=== PATIENT | male | born 1960 | race Caucasian/White ===

== ENCOUNTER 2020-03-31 13:33 | Outpatient (REF) | payer OTHER, SELFPAY ==
[2020-03-31 18:17] LABS: Alanine Aminotransferase 43 U/L (0-40); Albumin Level 4.3 g/dL (3.5-5.0); Alkaline Phosphatase 50 U/L (39-117); Anion Gap 11 (12-20); Aspartate Amino Transferase 35 U/L (5-37); Bilirubin Total 0.6 mg/dL (0.0-1.0); Blood Urea Nitrogen 26 mg/dL (9-16); Calcium 9.1 mg/dL (8.4-10.2); Carbon Dioxide 25 mmol/L (22-29); Chloride 104 mmol/L (96-108); Cholesterol 257 mg/dL; Estimated Glomerular Filt Rate > 60; Glucose Fasting 97 mg/dL (60-99); HDL Cholesterol 40 mg/dL; LDL Cholesterol Calculated 191 mg/dl; Potassium 4.2 mmol/l (3.3-5.1); Sodium 136 mmol/L (135-145); Triglycerides 131 mg/dL
[2020-03-31 18:29] LABS: Prostate Specific Antigen 3.22 ng/mL (<0.05-4.0); Vitamin D 25-OH Total 22.7 ng/mL (>30)
== END 2020-03-31 13:34 | disposition home or self-care (01) ==
LOC: HO.MANLDS 13:33
PROVIDERS: PCP Internal Medicine; Visit Provider Internal Medicine
DX: E78.5 Hyperlipidemia, unspecified (principal); E55.9 Vitamin D deficiency, unspecified; Z12.5 Encounter for screening for malignant neoplasm of prostate
CPT/HCPCS: 80053; 80061; 82306; 84153

== ENCOUNTER 2021-12-26 12:15 | Outpatient (REF) | payer OTHER, SELFPAY ==
[2021-12-26 17:48] LABS: MANUAL DIFF FLAG NO
[2021-12-26 17:53] LABS: Basophils Percent Auto 0.7 % (0-2); Eosinophils Absolute Auto 0.1 X10*3/uL (0.0-0.4); Eosinophils Percent Auto 1.4 % (0-4); Hematocrit 43.3 % (42.0-52.0); Imm Gran Abs Auto 0.01 X10*3/uL (0.00-0.03); Imm Gran Pct Auto 0.2 % (0.0-0.4); Lymphocytes Absolute Auto 0.9 X10*3/uL (1.2-4.9); Lymphocytes Percent Auto 16.7 % (20-40); Mean Corpuscular HGB Conc 34.6 g/dl (31.0-36.0); Mean Corpuscular Hemoglobin 29.8 pg (27.0-33.0); Mean Corpuscular Volume 85.9 fL (80.0-98.0); Mean Platelet Volume 12.3 fL (9.4-12.4); Monocytes Absolute Auto 0.4 X10*3/uL (0.1-1.2); Monocytes Percent Auto 7.7 % (2-11); Neutrophils Absolute Auto 4.1 x10*3/uL (2.0-8.3); Neutrophils Percent Auto 73.3 % (45-73); Platelet Count 198 X10*3/uL (160-400); Red Blood Count 5.04 X10*6/uL (4.60-5.80); Red Cell Distribution Width 12.1 % (11.0-16.0); White Blood Count 5.6 X10*3/uL (4.8-10.8)
[2021-12-26 17:58] LABS: INTERNATIONAL NORM RATIO 0.9 (0.9-1.1); Prothrombin Time 10.3 SEC (10.0-13.1)
[2021-12-26 18:22] LABS: Alanine Aminotransferase 31 U/L (0-40); Albumin Level 4.3 g/dL (3.5-5.0); Alkaline Phosphatase 56 U/L (39-117); Anion Gap 10 (12-20); Aspartate Amino Transferase 26 U/L (5-37); Bilirubin Total 0.4 mg/dL (0.0-1.0); Blood Urea Nitrogen 22 mg/dL (9-16); C Reactive Protein 0.16 mg/dL (< or = 0.50); Calcium 9.3 mg/dL (8.4-10.2); Carbon Dioxide 25 mmol/L (22-29); Chloride 110 mmol/L (96-108); Estimated Glomerular Filt Rate > 60; Glucose Random 105 mg/dL (60-115); Iron 95 mcg/dL (45-160); Percent Iron Saturation 28 % (15-50); Potassium 4.3 mmol/L (3.3-5.1); Sodium 141 mmol/L (135-145); Total Iron Binding Capacity 342 mcg/dL (228-428); Total Protein 7.1 g/dL (6.5-8.0); Unsaturated Iron Binding 247 ug/dL
[2021-12-26 18:32] LABS: Erythrocyte Sedimentation Rate 5 MM/HR (0-15)
[2021-12-26 18:43] LABS: Ferritin 139 ng/mL (20-250); Thyroid Stimulating Hormone 2.04 uIU/mL (0.32-4.0); Vitamin D 25-OH Total 35.1 ng/mL (>30)
[2021-12-26 18:52] LABS: Folate 16.3 ng/mL (> or = 4.0); Vitamin B12 380 pg/mL (200-900)
[2021-12-27 07:18] LABS: Estimated Average Glucose 117 mg/dL; Hemoglobin A1c % 5.7 %
[2021-12-27 09:32] LABS: Lyme Abs Screen <0.90 index
== END 2021-12-26 12:16 | disposition home or self-care (01) ==
LOC: HO.MANLDS 12:15
PROVIDERS: Visit Provider Physician Assistant
DX: R04.0 Epistaxis (principal); E55.9 Vitamin D deficiency, unspecified; R42 Dizziness and giddiness; R26.9 Unspecified abnormalities of gait and mobility; T14.8XXA Other injury of unspecified body region, initial encounter; W57.XXXA Bitten or stung by nonvenomous insect and other nonvenomous arthropods, initial encounter
CPT/HCPCS: 36415; 80053; 82306; 82607; 82728; 82746; 83036; 83540; 84443; 85025; 85610; 85652; 86140; 86617; 86618

== ENCOUNTER 2021-12-30 09:55 | Outpatient (REF) | payer OTHER, SELFPAY ==
[2021-12-30 11:26] LABS: INTERNATIONAL NORM RATIO 0.9 (0.9-1.1); Prothrombin Time 10.4 SEC (10.0-13.1)
[2021-12-30 11:28] LABS: Partial Thromboplastin Time 36.5 SEC (26.0-36.4)
== END 2021-12-30 09:56 | disposition home or self-care (01) ==
LOC: HO.MANLDS 09:55
PROVIDERS: Visit Provider Physician Assistant
DX: R04.0 Epistaxis (principal)
CPT/HCPCS: 36415; 85610; 85730

== ENCOUNTER 2023-01-03 10:23 | Outpatient (REF) | payer OTHER, SELFPAY ==
[2023-01-03 13:14] LABS: MANUAL DIFF FLAG NO
[2023-01-03 13:31] LABS: Basophils Absolute Auto 0.1 X10*3/uL (0.0-0.2); Eosinophils Absolute Auto 0.1 X10*3/uL (0.0-0.4); Eosinophils Percent Auto 1.5 % (0-4); Hematocrit 43.9 % (42.0-52.0); Imm Gran Abs Auto 0.01 X10*3/uL (0.00-0.03); Imm Gran Pct Auto 0.2 % (0.0-0.4); Lymphocytes Absolute Auto 0.9 X10*3/uL (1.2-4.9); Lymphocytes Percent Auto 17.6 % (20-40); Mean Corpuscular HGB Conc 34.2 g/dl (31.0-36.0); Mean Corpuscular Hemoglobin 29.8 pg (27.0-33.0); Mean Corpuscular Volume 87.1 fL (80.0-98.0); Monocytes Absolute Auto 0.5 X10*3/uL (0.1-1.2); Monocytes Percent Auto 9.2 % (2-11); Neutrophils Absolute Auto 3.7 x10*3/uL (2.0-8.3); Neutrophils Percent Auto 70.5 % (45-73); Platelet Count 201 X10*3/uL (160-400); Red Blood Count 5.04 X10*6/uL (4.60-5.80); White Blood Count 5.2 X10*3/uL (4.8-10.8)
[2023-01-03 13:38] LABS: Estimated Average Glucose 117 mg/dL; Hemoglobin A1c % 5.7 %
[2023-01-03 13:58] LABS: Alanine Aminotransferase 25 U/L (0-40); Albumin Level 4.2 g/dL (3.5-5.0); Alkaline Phosphatase 50 U/L (39-117); Anion Gap 13 (12-20); Aspartate Amino Transferase 23 U/L (5-37); Bilirubin Total 0.5 mg/dL (0.0-1.0); Blood Urea Nitrogen 23 mg/dL (9-16); Calcium 9.6 mg/dL (8.4-10.2); Carbon Dioxide 25 mmol/L (22-29); Chloride 109 mmol/L (96-108); Cholesterol 250 mg/dL; Estimated Glomerular Filt Rate > 60; Glucose Random 103 mg/dL (60-115); HDL Cholesterol 38 mg/dL; LDL Cholesterol Calculated 186 mg/dl; Potassium 4.5 mmol/L (3.3-5.1); Sodium 142 mmol/L (135-145); Total Protein 7.1 g/dL (6.5-8.0); Triglycerides 131 mg/dL
[2023-01-03 14:28] LABS: Prostate Specific Antigen 5.38 ng/mL (<0.05-4.0)
== END 2023-01-03 10:24 | disposition home or self-care (01) ==
LOC: HO.MANLDS 10:23
PROVIDERS: Visit Provider Internal Medicine
DX: Z12.5 Encounter for screening for malignant neoplasm of prostate (principal); E78.2 Mixed hyperlipidemia; R73.01 Impaired fasting glucose; N40.0 Benign prostatic hyperplasia without lower urinary tract symptoms
CPT/HCPCS: 36415; 80053; 80061; 83036; 84153; 85025

== ENCOUNTER 2024-11-14 11:28 | Outpatient (REF) | payer OTHER, SELFPAY ==
--- OUTSIDE RECORDS SUMMARY | 2024-11-14 12:25 | XMS_ITS | Data Portability ---
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 MUST MEET 2 OUT OF 3 ELEMENTS: PROBLEMS, DATA OR RISK ELEMENT 1: PROBLEMS ADDRESSED 1 OR MORE CHRONIC ILLNESS WITH EXACERBATION OR 2 OR MORE STABLE CHRONIC ILLNESSES OR 1 UNDIAGNOSED NEW PROBLEM OR 1 ACUTE ILLNESS W/SYMPTOMS OR 1 ACUTE COMPLICATED INJURY ELEMENT 2: DATA MUST MEET 1 OF 3 CATEGORIES CATEGORY 1: REVIEW OF PRIOR EXTERNAL NOTES, REVIEW OF RESULTS, ORDERING OF EACH TEST, ASSESSMENT REQUIRING INDEPENDENT HISTORIAN OR CATEGORY 2: INDEPENDENT INTERPRETATION OF TESTS BY ANOTHER PHYSICIAN OR SPECIALIST OR CATEGORY 3: DISCUSSION OF MGT OR TEST INTERPRETATION W/EXTERNAL PHYSICIAN OR SPECIALIST ELEMENT 3: RISK RISK OF COMPLICATIONS AND/OR MORBIDITY OR MORTALITY OF PATIENT MANAGEMENT PROVIDER MUST THOROUGHLY DOCUMENT EACH ELEMENT THAT IS COVERED Not available 02/14/2021 11:47:03 02/19/2023 02/19/2023 [id number] [place] [id number]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 MUST MEET 2 OUT OF 3 ELEMENTS: PROBLEMS, DATA OR RISK ELEMENT 1: PROBLEMS ADDRESSED 1 OR MORE CHRONIC ILLNESS WITH EXACERBATION OR 2 OR MORE STABLE CHRONIC ILLNESSES OR 1 UNDIAGNOSED NEW PROBLEM OR 1 ACUTE ILLNESS W/SYMPTOMS OR 1 ACUTE COMPLICATED INJURY ELEMENT 2: DATA MUST MEET 1 OF 3 CATEGORIES CATEGORY 1: REVIEW OF PRIOR EXTERNAL NOTES, REVIEW OF RESULTS, ORDERING OF EACH TEST, ASSESSMENT REQUIRING INDEPENDENT HISTORIAN OR CATEGORY 2: INDEPENDENT INTERPRETATION OF TESTS BY ANOTHER PHYSICIAN OR SPECIALIST OR CATEGORY 3: DISCUSSION OF MGT OR TEST INTERPRETATION W/EXTERNAL PHYSICIAN OR SPECIALIST ELEMENT 3: RISK RISK OF COMPLICATIONS AND/OR MORBIDITY OR MORTALITY OF PATIENT MANAGEMENT PROVIDER MUST THOROUGHLY DOCUMENT EACH ELEMENT THAT IS COVERED Not available 02/19/2023 16:59:59 11/02/2023 11/02/2023 [id number] [place] [id number]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 MUST MEET 2 OUT OF 3 ELEMENTS: PROBLEMS, DATA OR RISK ELEMENT 1: PROBLEMS ADDRESSED 1 OR MORE CHRONIC ILLNESS WITH EXACERBATION OR 2 OR MORE STABLE CHRONIC ILLNESSES OR 1 UNDIAGNOSED NEW PROBLEM OR 1 ACUTE ILLNESS W/SYMPTOMS OR 1 ACUTE COMPLICATED INJURY ELEMENT 2: DATA MUST MEET 1 OF 3 CATEGORIES CATEGORY 1: REVIEW OF PRIOR EXTERNAL NOTES, REVIEW OF RESULTS, ORDERING OF EACH TEST, ASSESSMENT REQUIRING INDEPENDENT HISTORIAN OR CATEGORY 2: INDEPENDENT INTERPRETATION OF TESTS BY ANOTHER PHYSICIAN OR SPECIALIST OR CATEGORY 3: DISCUSSION OF MGT OR TEST INTERPRETATION W/EXTERNAL PHYSICIAN OR SPECIALIST ELEMENT 3: RISK RISK OF COMPLICATIONS AND/OR MORBIDITY OR MORTALITY OF PATIENT MANAGEMENT PROVIDER MUST THOROUGHLY DOCUMENT EACH ELEMENT THAT IS COVERED Not available 11/02/2023 12:12:29 Plan of Treatment Reminders Order Date Submit Date Provider Last Modified By Organization Details Last Modified Time Details Appointments FOLLOW UP 15 2024 04:00P M DR PEÑA Not available Not available Not available Lab lipid panel, blood 2022 023 [facility], [address] [place] [address], [id number], 02/19/2023 17:05:49 CMP, serum or plasma 2022 023 [facility], [address] [place] [address], [id number], 02/19/2023 17:05:49 PSA, total + free, serum or plasma 2022 023 [facility], [address] [place] [address], [id number], 02/19/2023 17:05:49 vitamin D, 25-hydrox y, total, serum 2021 022 [facility], [address] [place] [address], [id number], 10/11/2021 16:25:18 lipid panel, blood 2021 022 [facility], [address] [place] [address], [id number], 10/11/2021 16:25:18 CMP, serum or plasma 2021 022 [facility], [address] [place] [address], [id number], 10/11/2021 16:25:18 CBC w/ auto diff 2021 022 [facility], [address] [place] [address], [id number], 10/11/2021 16:25:18 Referral general surgeon referral 2020 021 Antonina Monique, [address] [address], [place], [address], 02/15/2021 16:38:09 Procedures None recorded. Surgeries None recorded. Imaging XR, hip, bilateral , 2 view - bilateral 2022 023 [facility], [address] [place], [address], 02/26/2023 08:56:10 XR, knee, 3 view 2022 023 [facility], [address] [place], [address], 03/05/2023 09:07:25 XR, foot, 3 or more view 2021 022 [facility], [address] [place], [address], 10/25/2021 11:26:16 Medication Orders sildenafi l 50 mg tablet 2023 024 [id number], [address] [place] [address], [id number], 11/02/2023 12:20:37 cephalexi n 500 mg capsule 2023 024 [facility]88598, [address] [place], [place], [id number], 11/02/2023 12:17:39 silver sulfadiaz ine 1 % topical cream 2023 024 [facility] #10379, [address] [place], [place], [id number], 11/02/2023 12:17:40 naproxen 500 mg tablet 2021 022 [facility] #98579, [address], [place], [id number], 10/11/2021 16:17:08 Patient TargetsNo targets recorded. Patient Instructions Encounter Date Encounter Id Patient Instructions Last Modified By Organization Details Last Modified Time 02/14/2021 [id number] prediabetes: car e instructions Not available 02/14/2021 11:47:05 chronic obstructive pulmonary disease (COPD): care instructions Not available 02/14/2021 11:47:05 learning about copd and how to prevent lung infections Not available 02/14/2021 11:47:05 12/26/2021 [id number] pulse oximetry* [email or web address] Not available 12/26/2021 11:56:51 02/19/2023 [id number] chronic obstructive pulmonary disease (COPD): care instructions Not available 02/19/2023 17:04:29 learning about copd and how to prevent lung infections Not available 02/19/2023 17:04:29 pulse oximetry* Not available 02/19/2023 17:04:29 prostate biopsy: about this test Not available 02/19/2023 17:04:29 controlling your asthma: care instructions Not available 02/19/2023 17:04:29 learning about asthma Not available 02/19/2023 17:04:30 11/02/2023 [id number] controlling your asthma: care instructions Not available 11/02/2023 12:17:33 learning about asthma Not available 11/02/2023 12:17:33 Reason for Referral General Surgeon Referral for Umbilical hernia Referring Physician: Davey Peña, Internal Medicine, Encounter Date: 02/14/2021 Results Created Date Observation Date Name Description Value Unit Range Abnormal Flag Note LastModifiedBy Organization Detail LastModifiedTime 12/27/19 22 12/26/2021 pulse oxime try* Result 96 Not Available [facility] [address] [facility] [address], [place], [address], 12/26/2021 11:47:42 02/20/20 23 02/19/2023 pulse oxime try* Result 94 Not Available [facility] [address] [facility] [address], [place], [address], 02/13/2023 10:11:34 11/10/19 22 11/09/2021 XR, foot, 3 or more view No observ ation record ed. tbalicki [facility] [address] [place], [address], 11/21/2021 15:14:16 Result Notes None recorded. Problems Name Problem SNOMED Code Status Onset Date Resolution Date Notes Provider Name and Address Organization Details Recorded Time Hyperlipi demia 72421753 Active 2019 Not Available [facility] 3 03:36:46 Prolapsed cervical intervert ebral disc 495775956 Active 2019 Not Available [facility] 3 03:36:46 Neck pain 80320940 Active 2019 Not Available [facility] 3 03:36:46 Impaired fasting glycemia 146780742 Active 2019 Not Available [facility] 3 03:36:46 Asthma 409103409 Active 2019 Not Available [facility] 3 03:36:46 Chronic obstructi ve pulmonary disease 79545970 Active 2019 Not Available [facility] 3 03:36:46 Restless legs 96098470 Active 2019 Not Available [facility] 3 03:36:46 Gastroeso phageal reflux disease 643901240 Active 2019 Not Available [facility] 3 03:36:46 Sliding hiatus hernia 807818656 Active 2019 Not Available [facility] 3 03:36:46 Dias's neuroma of right foot 912633030963 108 Active 2021 Not Available [facility] 3 03:36:46 Vitamin D deficienc y 50440764 Active 2021 Not Available [facility] 3 03:36:46 Calcaneal spur of right foot 341153289148 100 Active 2021 Not Available [facility] 3 03:36:46 Bleeding from nose 309928864 Active 2021 Not Available [facility] 3 03:36:46 Dizziness 692270959 Active 2021 Not Available [facility] 3 03:36:46 Abnormal gait 09644599 Active 2021 Not Available [facility] 3 03:36:46 Benign prostatic hyperplas ia 686676679 Active 2022 Davey Peña DO [address] [place] [address], [address], [facility] 3 13:39:29 Prostate specific antigen above reference range 842723412 Active 2022 MARCIO ECHEVARRIA [address] [place] [address], [address], [facility] 3 15:23:48 Hyperchol esterolem ia 67374314 Active 2022 Davey Peña DO [address] [place] [address], [address], [facility] 3 17:00:12 Pain of right knee joint 648216911435 100 Active 2022 Davey Peña DO [address] [place] [address], [address], [facility] 3 17:02:18 Pain of bilateral hip joints 528068922079 03560 Active 2022 Davey Peña, DO [address] [place], [address], [facility] 3 17:03:08 Hematoma of lower leg 474718948 Active 2023 Davey Peña, DO [address] [place], [address], [facility] 4 12:13:16 Celluliti s of right lower limb 025788504902 14793 Active 2023 Davey Peña, DO [address] [place] [address], [address], [facility] 4 12:15:21 Notes:Some problems listed i n Document: #[id number] could not be added to this patient's chart. Please review this document and add these problems to the patient's chart manually as needed. Problem Notes None recorded. Procedures Surgical History Date Name Laterality Status Provider Name and Address Organization Details Recorded Time 3 Colonoscopy completed Drea Jimenez [facility] 08/06/2019 13:52:45 Imaging Results None recorded. Procedure Notes None recorded. Medical Equipment None Reported. Allergies No known drug allergies Medications Name Sig Start Date Stop Date Status Note LastModified by Organization Details LastModified Time Prescriptio n - Prior Authorizati on Request 10/08 completed Not Available Not Available Not Available atorvastati n 40 mg tablet TAKE 1 TABLET BY MOUTH EVERY DAY 07/08 completed Not Available Not Available Not Available silver sulfadiazin e 1 % topical cream APPLY A 1/16 INCH (1.5 MM) THICK LAYER TO ENTIRE AREA BY TOPICALRO UGASHIK daily active Not Available Not Available No t Available sildenafil 50 mg tablet TAKE 1 TABLET BY MOUTH EVERY DAY active Not Available Not Available No t Available doxycycline monohydrate 100 mg tablet Take 1 tablet twice a day by oral route for 10 days. 10/08 completed Not Available Not Available Not Available doxycycline monohydrate 100 mg capsule Take 1 capsule twice a day by oral route for 10 days. 10/08 completed Not Available Not Available Not Available cephalexin 500 mg capsule TAKE 1 CAPSULE BY MOUTH THREE TIMES DAILY FOR 10 DAYS active Not Available Not Available No t Available omeprazole 20 mg capsule,del ayed release TAKE 1 CAPSULE BY MOUTH EVERY DAY needs appt call office active Not Available Not Available No t Available halobetasol propionate 0.05 % topical cream APPLY A THIN LAYER TO THE AFFECTED AREA(S) BY TOPICAL ROUTE ONCE DAILY DO NOT EXCEED 50 GRAMS PER WEEK OR 2 WEEKS DURATION 08/10 completed Not Available Not Available Not Available doxycycline hyclate 100 mg tablet 10/08 completed Not Available Not Available Not Available naproxen 500 mg tablet TAKE 1 TABLET BY MOUTH TWICE DAILY WITH MEALS active Not Available Not Available No t Available oxycodone 5 mg tablet 10/11 completed Not Available Not Available Not Available ezetimibe 10 mg tablet TAKE 1 TABLET BY MOUTH EVERY DAY active Not Available Not Available No t Available Laxative (bisacodyl) 5 mg tablet TAKE 4 TABLETS BY MOUTH ONCE DIRECTED 11/01 completed Not Available Not Available Not Available moxifloxaci n 0.5 % eye drops 11/01 completed Not Available Not Available Not Available GaviLyte-G 236 gram-22.74 gram-6.74 gram-5.86 gram oral solution MIX AND DRINK DIRECTED 11/01 completed Not Available Not Available Not Available Breo Ellipta 100 mcg-25 mcg/dose powder for inhalation INHALE 1 PUFF BY MOUTH EVERY DAY active Not Available Not Available No t Available Lotemax SM 0.38 % eye gel drops 11/01 completed Not Available Not Available Not Available Afluria Qd 2019-20 (36 mos up)(PF)60 mcg (15 mcg x4)/0.5 mL IM syringe 08/10 completed Not Available Not Available Not Available Vitals Date Recorded Body height Body mass index (BMI) Body weight Heart rate Oxygen saturation Oxygen saturation in Arterial blood by Pulse oximetry Systolic blood pressure Diastolic blood pressure Provider Name and Address Organization Details Last Updated DateTime 2 181.61 cm 30.1 kg/m2 77500.0 1 g 85 /min 95 % 95 % 118 mm[Hg] 80 mm[Hg] MARCIO ECHEVARRIA [address] [place], [address], [place] [facility] 2 15:52:23 Date Recorded Body height Body mass index (BMI) Body weight Heart rate Respiratory rate Oxygen saturation Oxygen saturation in Arterial blood by Pulse oximetry Systolic blood pressure Diastolic blood pressure Provider Name and Address Organization Details Last Updated DateTime 4 180.34 cm 30.1 kg/m2 29316.9 5 g 80 /min 16 /min 96 % 96 % 126 mm[Hg] 74 mm[Hg] Kristian Oliveira [facility] 4 11:57:43 Date Recorded Body height Body mass index (BMI) Body weight Heart rate Oxygen saturation Oxygen saturation in Arterial blood by Pulse oximetry Systolic blood pressure Diastolic blood pressure Provider Name and Address Organization Details Last Updated DateTime 2 181.61 cm 29.6 kg/m2 44311.0 8 g 80 /min 96 % 96 % 112 mm[Hg] 70 mm[Hg] MARCIO ECHEVARRIA [address] [place], [address] 2 11:50:10 Date Recorded Body weight Body mass index (BMI) Body height Oxygen saturation Oxygen saturation in Arterial blood by Pulse oximetry Heart rate Systolic blood pressure Diastolic blood pressure Provider Name and Address Organization Details Last Updated DateTime 1 84489.0 1 g 30.1 kg/m2 181.61 cm 96 % 96 % 76 /min 140 mm[Hg] 90 mm[Hg] Buffy Alcantar [facility] 1 11:31:22 Date Recorded Body height Body mass index (BMI) Body weight Heart rate Oxygen saturation Oxygen saturation in Arterial blood by Pulse oximetry Systolic blood pressure Diastolic blood pressure Provider Name and Address Organization Details Last Updated DateTime 3 180.34 cm 29.6 kg/m2 92828.5 8 g 75 /min 94 % 94 % 124 mm[Hg] 80 mm[Hg] Shikha Clay [facility] 3 16:27:51 Social History Question Answer Notes LastModified by Organizat ion Details LastModified Time Tobacco Smoking Status Never Smoker Not Available [facility] 04/06/2020 03:36:24 What Was The Date Of Your Most Recent Tobacco Screening? 11/02/2023 [email or web address] Information not available 11/02/2023 Sex: Unknown Functional Status Question Answer Note LastModified by Organization D etails LastModified Time Do you or have you ever used any other forms of tobacco or nicotine? No [email or web address] Information not available 12/26/2021 Mental Status None recorded. Family History Relationship Description Onset Age of this Age Resolved Age Notes LastModified by Organization Details LastModified Time Father Diabetes mellitus [email or web address] Not available 2019 13:48:27 Medical History No medical history recorded. Immunizations Vaccine Type Date Status Note Provider Nam e and Address Organization Details Recorded Time COVID-19, mRNA, LNP-S, PF, 30 mcg/0.3 mL dose 1 completed Not Available [facility] 06/22/2022 03:36:46 COVID-19, mRNA, LNP-S, PF, 30 mcg/0.3 mL dose 1 completed Not Available [facility] 06/22/2022 03:36:46 Influenza, split virus, quadrivalent, preservative 0 completed Not Available [facility] 06/22/2022 03:36:46 Tdap 7 completed Not Available [facility] 06/22/2022 03:36:46 Td(adult) unspecified formulation 2 completed Not Available [facility] 06/22/2022 03:36:46 Past Encounters Encounter ID Performer Location Encounter Start Date Encounter Closed Date Diagnosis/Indication Diagnosis SNOMED-CT Code Diagnosis ICD10 Code Diagnosis Note [id number] Davey Peña DO [facility] [address] [facility] [place] [address] 08/11/2019 14:54:16 08/11/2019 15:46:55 Chronic obstructive pulmonary disease 21816409 J44.9 will restart breo but also refer to dr simon Asthma 924825256 J45.90 9 needs to cont breo Gastroesop hageal reflux disease 810819396 K21.9 will start him by telling to take the omeprazole daily please will need to see dr chapa Sliding hiatus hernia 23 3029070 K44.9 see above Pain of ri ght elbow joint 2015155002 0886159 M25.521 Fatigue 14229361 R53.83 [id number] Davey Peña [facility] [address] [facility],[place] [address] 02/14/2021 11:22:31 02/15/2021 16:38:08 Chronic obstructive pulmonary disease 88624580 J44.9 will restart breo and is doing well with this Impaired f asting glycemia 306777168 R73.01 doing well and is fine Umbilical hernia 6960669 07 K42.9 will need gen surg cannot treat this any longer in a non-surg manner [id number] Davey Peña [facility] [address] [facility],[place] [address] 10/11/2021 15:32:55 10/11/2021 16:31:48 Dias's neuroma of right foot 9564608023 87083 G57.61 will need MRI Hyperlipidemia 61814034 E78.2 will recheck blood work Vitamin D deficiency 347 55655 E55.9 will fu with vitamin D recheck [id number] Davey Peña [facility] [address] [facility],[place] [address] 12/26/2021 11:45:18 12/26/2021 13:25:05 Pre-surgery evaluation 132515491 Z01.818 The patient was seen in the office today for pre-op evaluation . All medical conditions on patient's problem list were addressed and are currently stable, no interventi on needed at this time. Based on history and physical performed, the patient is cleared for surgery. Asthma 050713072 J45.30 stable [id number] Davey Peña [facility] [address] [facility],[place] [address] 02/19/2023 16:16:06 02/20/2023 08:00:01 Asthma 153937143 J45.30 needs to cont breo Chronic ob structive pulmonary disease 77759185 J44.9 will restart breo and is doing well with this Hypercholesterolemia 136 27926 E78.00 will start atorvastat half tab for few weeks then full rechk lab in may Prostate s pecific antigen above reference range 231361518 R97.20 we will rechk next lab draw Pain of ri ght knee joint 8195795955 81962 M25.561 both knees can be sore Pain of bi lateral hip joints 6293708052 7626121 M25.551 M25.552 [id number] Davey Peña DO [facility] [address] [facility],[place] [address] 11/02/2023 11:44:49 11/02/2023 15:45:42 Depression screening 450313870 Z13.31 neg Asthma 659176269 J45.30 needs to cont breo Hematoma of lower leg 44 6795133 S80.11XA will cont to have him take naprosynwi ll have him cont to elevate leg with warmth Cellulitis of right lower limb 5141150636 6671257 L03.115 Primary er ectile dysfunction 033839533 N52.9 Health Concerns Section Related Observation LastModified by Organization Detai ls LastModified Time None Recorded Concern Status LastModified by Organization Details LastModified Time None Recorded Advance Directives Directive None Recorded Payers Insurance Date Sequence Insurance Name Policy Number Policy Rivera Covered Member ID Rivera Member ID Guarantor Name 02/14/2021 1 [facility] (HMO) Raven Augustin [id number] Herbie Augustin 11/02/2024 1 [facility] Herbie Augustin [id number] Herbie Augustin Notes Date Note Type Note Provider Name a nd Address Organization Details Recorded Time 1 text/html here for rechek and is doing greathaving episodes of severe pain to the belly button that is episodic and gets better each time after lying down for an hourhas been a prob for quite a while but is increasing in frequency Davey Peña DO [address] [facility], [place], [address], [facility] 02/14/2021 11:50:11 2 text/html c/o right foot pain right foot painthe patient reports that he developed for about a yearthe patient reports that pain is worse after a full day on the feetthe patient has tried rest, shoe changes, without effectburns at the end of the day at the sole of the foot where the toes connect to the rest of the foot 10 years ago stepped on tyler, piece left in the foot, the patient ended up in the hospital due to recurrent infections the patient reports that it feels like he is walking on a pebblethe patient may have Dias's Neuroma based on the clinical presentation needs lab-work rechecked from last check MARCIO ECHEVARRIA [address] [place], [address], [facility] 10/11/2021 16:29:21 2 text/html Pre-OpReported bypatient.Surgery to be Performed:left cataract surgery with Dr. Gonzalez Severity:severe Risk Factorsno cognitive impairment; no functional impairment; no malnutrition; no frailty; able to climb a flight of stairs (exercise capacity>4 METS); no obstructive sleep apnea; non-smoker; no alcohol misuse; no illicit drug use; no chronic cardiopulmonary condition; not obese Anesthesia hx:no hx of anesthesia complications; no allergy to anesthetic agents; no family history of anesthesia complications; no history with anesthesia Functional Ability:able to walk up stairs; able to perform heavy work around the house; no difficulty walking up hills; able to walk 4 mph Post-Op Support:adequate assistance at home MARCIO ECHEVARRIA [address] [place], [address], [facility] 12/26/2021 12:11:21 3 text/html here for discuss re the medsand relates he is worried about the med and hasnt takendiscussed lab in detailpsa sl elevated at 5.3we will jaida with next lipid chkalso his knee on rt is sore and his hips are also very sore Davey Peña DO [address] [place], [address], [facility] 02/19/2023 17:05:34 4 text/html here for rechk and is seen for a large hematoma to his right calfrelates that this happened on the 24 october went to ER and had been treated with naprosynhematoma is now half the size of what it was Davey Peña, DO [address] [facility], [place], [address], [facility] 11/02/2023 12:20:40
[2024-11-14 13:06] LABS: MANUAL DIFF FLAG NO
[2024-11-14 13:19] LABS: Basophils Percent Auto 0.7 % (0-2); Eosinophils Absolute Auto 0.1 X10*3/uL (0.0-0.4); Eosinophils Percent Auto 1.2 % (0-4); Hemoglobin 14.9 g/dl (14.0-18.0); Imm Gran Abs Auto 0.02 X10*3/uL (0.00-0.03); Imm Gran Pct Auto 0.3 % (0.0-0.4); Lymphocytes Absolute Auto 1.1 X10*3/uL (1.2-4.9); Lymphocytes Percent Auto 18.7 % (20-40); Mean Corpuscular HGB Conc 34.7 g/dl (31.0-36.0); Mean Corpuscular Volume 86.5 fL (80.0-98.0); Mean Platelet Volume 11.5 fL (9.4-12.4); Monocytes Absolute Auto 0.5 X10*3/uL (0.1-1.2); Monocytes Percent Auto 8.7 % (2-11); Neutrophils Absolute Auto 4.1 x10*3/uL (2.0-8.3); Neutrophils Percent Auto 70.4 % (45-73); Platelet Count 221 X10*3/uL (160-400); Red Blood Count 4.97 X10*6/uL (4.60-5.80); Red Cell Distribution Width 12.4 % (11.0-16.0); White Blood Count 5.9 X10*3/uL (4.8-10.8)
[2024-11-14 14:01] LABS: Alanine Aminotransferase 34 U/L (0-40); Albumin Level 4.4 g/dL (3.5-5.0); Alkaline Phosphatase 51 U/L (39-117); Anion Gap 11 (12-20); Aspartate Amino Transferase 35 U/L (5-37); Bilirubin Total 0.6 mg/dL (0.0-1.0); Blood Urea Nitrogen 24 mg/dL (9-16); Calcium 9.7 mg/dL (8.4-10.2); Carbon Dioxide 26 mmol/L (22-29); Chloride 108 mmol/L (96-108); Cholesterol 202 mg/dL (<200); Estimated Glomerular Filt Rate > 60; Glucose Random 110 mg/dL (60-115); HDL Cholesterol 38 mg/dL (>40); LDL Cholesterol Calculated 142 mg/dL (<100); Potassium 4.1 mmol/L (3.3-5.1); Sodium 141 mmol/L (135-145); Total Protein 6.8 g/dL (6.5-8.0); Triglycerides 114 mg/dL (<150); Vitamin D 25-OH Total 33.8 ng/mL (>30)
[2024-11-14 14:12] LABS: Prostate Specific Antigen 5.05 ng/mL (<0.05-4.0)
== END 2024-11-14 11:29 | disposition home or self-care (01) ==
LOC: HO.MANLDS 11:28
PROVIDERS: Visit Provider Internal Medicine
DX: E78.00 Pure hypercholesterolemia, unspecified (principal); Z12.5 Encounter for screening for malignant neoplasm of prostate; E55.9 Vitamin D deficiency, unspecified
CPT/HCPCS: 36415; 80053; 80061; 82306; 84153; 85025